=== PATIENT | male | born 1975 | race Caucasian/White ===

== ENCOUNTER 2020-01-03 13:10 | Outpatient (CLI) | payer OTHER | END 2020-01-03 13:11 | disposition home or self-care (01) | LOC: DI 13:10 | PROVIDERS: ATTEND Internal Medicine Critical Care Medicine | DX: R06.09 Other forms of dyspnea (principal); I34.0 Nonrheumatic mitral (valve) insufficiency; I11.9 Hypertensive heart disease without heart failure | CPT/HCPCS: 93306 ==

== ENCOUNTER 2023-06-02 07:01 | Emergency (ER) | payer MEDICAID, OTHER ==
[2023-06-02] MEDS ORDERED: KETOROLAC 30 MG/ML VIAL IVP STA (07:32)
[2023-06-02] MEDS ORDERED: SODIUM CHLORIDE 0.9% 1,000 ML IV STA (07:32)
--- NOTE | 2023-06-02 07:36 | ED Physician Documentation ---
History of Present Illness - Stated complaint Stated Complaint: FEVER,NAUSEA,BACK PX - Chief complaint Chief Complaint: General - History obtained from History obtained from: Patient - Additonal information Additional information: Patient is a 47-year-old male with a prior history of atrial fibrillation with ablation presenting for evaluation of fever for the past 40 days with body aches, intermittent pains in the left groin, dull aches in the low back. Patient has been using acetaminophen with improvement in his fever but the fever Will spike back up. He last used acetaminophen this morning at 5:30 in the morning. He denies cough or congestion. No vomiting or diarrhea. He denies dysuria but has noted that his urine appears darker. No blood in the urine. He has been traveling around the [facility] with camping and fishing. No known sick contacts. He has taken a COVID swab which has been negative twice. Review of Systems Constitutional: reports: Fever Cardiac: denies: Chest pain / pressure Respiratory: denies: Dyspnea GI: denies: Abdominal Pain, Vomiting : denies: Dysuria Musculoskeletal: denies: Extremity swelling PD PAST MEDICAL HISTORY - Present Medications Home Medications: Ambulatory Orders Medication Instructions Recorded Confirmed No Known Home Medications 06/02/23 06/02/23 - Allergies Allergies/Adverse Reactions: Allergies Allergy/AdvReac Type Severity Reaction Status Date / Time No Known Drug Allergies Allergy Verified 06/02/23 07:19 PD ED PE NORMAL - General General: Alert and oriented X 3, No acute distress, Well developed/nourished - HEENT HEENT: Atraumatic, Moist mucous membranes, Pharynx benign - Neck Neck: Supple, no meningeal sign, No bony TTP - Cardiac Cardiac: RRR, No murmur - Respiratory Respiratory: No respiratory distress, Clear bilaterally - Abdomen Abdomen: Normal bowel sounds, Soft, Non tender, Non distended - Male Male : Area Safety Manager present (Hannah; no inguinal tenderness on exam; no visible or palpable masses or swelling; no erythema) - Derm Derm: Warm and dry - Extremities Extremities: No edema - Neuro Neuro: Alert and oriented X 3, No motor deficit, Normal speech Results - Vitals Vitals: Vital Signs - 24 hr 06/02/23 06/02/23 06/02/23 07:11 07:43 09:29 Temperature 37.6 C Heart Rate 99 82 72 Respiratory 16 20 15 Rate Blood Pressure 144/86 H 136/90 H 111/61 O2 Saturation 97 100 98 Oxygen O2 Source Room air - Labs Labs: Laboratory Tests 06/02/23 06/02/23 06/02/23 07:37 07:37 07:37 WBC 6.1 RBC 4.90 Hgb 15.4 Hct 44.4 MCV 90.6 MCH 31.4 H MCHC 34.7 RDW 13.3 Plt Count 144 MPV 8.9 Neut # (Auto) 4.8 Lymph # (Auto) 0.6 L [place] # (Auto) 0.7 Eos # (Auto) 0.0 Baso # (Auto) 0.0 Absolute Nucleated RBC 0.00 Nucleated RBC % 0.0 Sodium 133 L Potassium 3.8 Chloride 101 Carbon Dioxide 24 Anion Gap 8.0 BUN 13 Creatinine 1.1 Estimated GFR (MDRD) 72 L Glucose 120 H Lactic Acid 0.8 Calcium 9.3 Total Bilirubin 0.6 AST 89 H ALT 119 H Alkaline Phosphatase 141 H Total Protein 7.1 Albumin 4.4 Globulin 2.7 Albumin/Globulin Ratio 1.6 Lipase 10 L Urine Color Urine Clarity Urine pH Ur Specific [place] Urine Protein Urine Glucose (UA) Urine Ketones Urine Occult Blood Urine Nitrite Urine Bilirubin Urine Urobilinogen Ur Leukocyte Esterase Urine RBC Urine WBC Ur Squamous Epith Cells Urine Bacteria Urine Mucus Ur Microscopic Review Urine Culture Comments Nasal Adenovirus (PCR) Nasal B. parapertussis DNA (PCR) Nasal Coronavir 229E PCR Nasal Coronavir HKU1 PCR Nasal Coronavir NL63 PCR Nasal Coronavir OC43 PCR Nasal Enterovir/Rhinovir PCR Nasal Influenza B PCR Nasal Influenza A PCR Nasal Parainfluen 1 PCR Nasal Parainfluen 2 PCR Nasal Parainfluen 3 PCR Nasal Parainfluen 4 PCR Nasal RSV (PCR) Nasal B.pertussis DNA PCR Nasal C.pneumoniae (PCR) Stas Human Metapneumo PCR Nasal M.pneumoniae (PCR) Nasal SARS-CoV-2 (PCR) 06/02/23 06/02/23 07:40 07:40 WBC RBC Hgb Hct MCV MCH MCHC RDW Plt Count MPV Neut # (Auto) Lymph # (Auto) [place] # (Auto) Eos # (Auto) Baso # (Auto) Absolute Nucleated RBC Nucleated RBC % Sodium Potassium Chloride Carbon Dioxide Anion Gap BUN Creatinine Estimated GFR (MDRD) Glucose Lactic Acid Calcium Total Bilirubin AST ALT Alkaline Phosphatase Total Protein Albumin Globulin Albumin/Globulin Ratio Lipase Urine Color DARK YELLOW Urine Clarity CLEAR Urine pH 6.5 Ur Specific [place] 1.020 Urine Protein 30 H Urine Glucose (UA) NEGATIVE Urine Ketones 40 H Urine Occult Blood NEGATIVE Urine Nitrite NEGATIVE Urine Bilirubin NEGATIVE Urine Urobilinogen 1 (NORMAL) Ur Leukocyte Esterase NEGATIVE Urine RBC 0-5 Urine WBC 0-3 Ur Squamous Epith Cells NONE SEEN Urine Bacteria Rare Urine Mucus Few Strands Ur Microscopic Review INDICATED Urine Culture Comments NOT INDICATED Nasal Adenovirus (PCR) NOT DETECTED Nasal B. parapertussis DNA (PCR) NOT DETECTED Nasal Coronavir 229E PCR NOT DETECTED Nasal Coronavir HKU1 PCR NOT DETECTED Nasal Coronavir NL63 PCR NOT DETECTED Nasal Coronavir OC43 PCR NOT DETECTED Nasal Enterovir/Rhinovir PCR NOT DETECTED Nasal Influenza B PCR NOT DETECTED Nasal Influenza A PCR NOT DETECTED Nasal Parainfluen 1 PCR NOT DETECTED Nasal Parainfluen 2 PCR NOT DETECTED Nasal Parainfluen 3 PCR NOT DETECTED Nasal Parainfluen 4 PCR NOT DETECTED Nasal RSV (PCR) NOT DETECTED Nasal B.pertussis DNA PCR NOT DETECTED Nasal C.pneumoniae (PCR) NOT DETECTED Stas Human Metapneumo PCR NOT DETECTED Nasal M.pneumoniae (PCR) NOT DETECTED Nasal SARS-CoV-2 (PCR) NOT DETECTED PD Medical Decision Making - ED course Complexity details: reviewed results, re-evaluated patient, d/w patient ED course: Patient is a 47-year-old male presenting for evaluation of fever for the past 4 days with generalized body aches. He has been using acetaminophen. He is afebrile here but did have acetaminophen earlier today. Otherwise vital signs appear stable. Abdominal exam is benign. He is ambulatory,. No signs of meningitis. Labs obtained without significant findings other than mild elevation in LFTs. Abdominal exam repeated with no tenderness again noted. His urine analysis is negative for infection. Chest x-ray is clear. Respiratory swab is negative. As his white count is normal and lack of other symptoms I still suspect a viral etiology. LFTs may be elevated due to a viral hepatitis. I offered abdominal imaging which patient declines at this time as he is feeling better. Discussed continued supportive care. Blood cultures are pending. Aware of need for follow-up with primary care provider regarding elevated LFTs. Patient also counseled on concerning symptoms to return for. Departure - Departure Disposition: 01 Home, Self Care Clinical Impression: Fever, unknown origin, Abnormal liver enzymes Condition: Stable Instructions: ED Fever Unconf Cause Follow-Up: Iris Singh, GRACIELA [Physician No Access] - Within 3 Days (Please follow-up with your primary care provider at [facility]) Comments: You were evaluated for a fever. The exact cause for your fever at this time is unclear. Your chest x-ray does not show pneumonia. Your urine does not show an infection. Your respiratory swab is negative for the viruses that we are testing for including COVID. You do have slight elevation of some of your liver markers. Sometimes this can happen with a viral infection or hepatitis. Currently you are not having any abdominal symptoms including tenderness. I would recommend close follow-up with your primary care provider for recheck and possible imaging of your liver. If you develop any worsening symptoms such as pain, vomiting, diarrhea or have any new concerns or symptoms please return to the emergency department. We have also obtained blood cultures today. These will take a few days to result. If anything is abnormal we will notify you. Continue with fluids, rest and fever control with ibuprofen. Forms: PCP List Discharge Date/Time: 06/02/23 09:35
[2023-06-02 07:44] LABS: BASOPHILS % (AUTO) 0.5 %; HCT - HEMATOCRIT 44.4 % (42.0-52.0); HGB - HEMOGLOBIN 15.4 g/dL (14.0-18.0); LYMPHOCYTES # (AUTO) 0.6 10^3/uL (1.5-3.5); MEAN CORPUSCULAR HEMOGLOBIN 31.4 pg (27.0-31.0); MEAN CORPUSCULAR HGB CONC 34.7 g/dL (32.0-36.0); MEAN CORPUSCULAR VOLUME 90.6 fL (80.0-94.0); MEAN PLATELET VOLUME 8.9 fL (7.4-11.4); MONOCYTES # (AUTO) 0.7 10^3/uL (0.0-1.0); MONOCYTES % (AUTO) 11.6 %; NEUTROPHILS # (AUTO) 4.8 10^3/uL (1.5-6.6); NEUTROPHILS % (AUTO) 78.7 %; PLT - PLATELET COUNT 144 10^3/uL (130-450); RED CELL DISTRIBUTION WIDTH 13.3 % (12.0-15.0); WHITE BLOOD COUNT 6.1 x10^3/uL (4.8-10.8)
[2023-06-02 07:49] LABS: GLUCOSE, URINE (UA) NEGATIVE (NEGATIVE); KETONES,URINE (UA) 40 mg/dL (NEGATIVE); LEUKOCYTE ESTERASE, URINE NEGATIVE (NEGATIVE); NITRITE,URINE NEGATIVE (NEGATIVE); OCCULT BLOOD,URINE NEGATIVE (NEGATIVE); PH,URINE 6.5 PH (5.0-7.5); PROTEIN,URINE 30 mg/dL (NEGATIVE); UROBILINOGEN,URINE 1 (NORMAL) E.U./dL (NORMAL)
[2023-06-02 07:51] LABS: BILIRUBIN,URINE NEGATIVE (NEGATIVE); CLARITY,URINE CLEAR (CLEAR); ICTOTEST,URINE NEGATIVE
[2023-06-02 08:03] LABS: ALBUMIN 4.4 g/dL (3.2-5.5); ALBUMIN/GLOBULIN RATIO 1.6 (1.0-2.2); BILIRUBIN,TOTAL 0.6 mg/dL (0.2-1.0); CALCIUM 9.3 mg/dL (8.5-10.3); CREATININE 1.1 mg/dL (0.6-1.3); POTASSIUM 3.8 mmol/L (3.5-4.5); TOTAL PROTEIN 7.1 g/dL (6.4-8.9)
[2023-06-02 08:07] LABS: BACTERIA,URINE Rare /HPF (None Seen); MUCUS,URINE Few Strands; RBC,URINE 0-5 /HPF (0-5); SQUAMOUS EPITHELIAL CELL,UR NONE SEEN (<= Few); WBC,URINE 0-3 /HPF (0-3)
[2023-06-02 08:42] LABS: B. PARAPERTUSSIS- RESP PCR PAN NOT DETECTED; B. PERTUSSIS- RESP PCR PANEL NOT DETECTED; C. PNEUMONIAE- RESP PCR PANEL NOT DETECTED; CORONAVIRUS 229E-RESP PCR NOT DETECTED; CORONAVIRUS HKU1-RESP PCR NOT DETECTED; CORONAVIRUS NL63-RESP PCR NOT DETECTED; CORONAVIRUS OC43-RESP PCR NOT DETECTED; HUMAN METAPNEUMOVIRUS NOT DETECTED; INFLUENZA A- RESP PCR PANEL NOT DETECTED; INFLUENZA B - RESP PCR PANEL NOT DETECTED; M. PNEUMONIAE- RESP PCR PANEL NOT DETECTED; PARAINFLUENZA VIRUS 1 NOT DETECTED; PARAINFLUENZA VIRUS 2 NOT DETECTED; PARAINFLUENZA VIRUS 3 NOT DETECTED; PARAINFLUENZA VIRUS 4 NOT DETECTED; RHINOVIRUS/ENTEROVIRUS NOT DETECTED; RSV- RESP PCR PANEL NOT DETECTED; SARS-CoV-2 -RESP PCR PANEL NOT DETECTED
--- NOTE | 2023-06-02 08:47 | XRAY Report ---
PROCEDURE: Chest 1 View X-Ray INDICATIONS: fever x 4 days TECHNIQUE: One view of the chest was acquired. COMPARISON: None. FINDINGS: Surgical changes and devices: None. Lungs and pleura: No pleural effusions or pneumothorax. Lungs are clear. Mediastinum: Mediastinal contours appear normal. Heart size is normal. Bones and chest wall: No suspicious bony lesions. Overlying soft tissues appear unremarkable. IMPRESSION: No acute cardiopulmonary process. Reviewed by: Armida Argueta MD on 06/02/2023 8:46 AM PDT Approved by: Armida Argueta MD on 06/02/2023 8:46 AM PDT Station ID: [id number]
[2023-06-02 09:31] VITALS: BP 111/61; O2SAT 98
== END 2023-06-02 09:35 | disposition home or self-care (01) ==
LOC: ED 07:01
DX: R50.9 Fever, unspecified (principal); R74.01 Elevation of levels of liver transaminase levels; Z20.822 Contact with and (suspected) exposure to COVID-19
CPT/HCPCS: 36415; 80053; 81001; 81003; 83605; 83690; 85025; 87040; 87086; 87150; 87633; 96374; 99283

== ENCOUNTER 2023-06-03 10:13 | Inpatient (IN) | payer MEDICAID ==
--- NOTE | 2023-06-03 11:06 | ED Physician Documentation ---
PD HPI FEVER - Stated complaint Stated Complaint: FEVER,BACK/GROIN PAIN,GI - Chief complaint Chief Complaint: Fever - History obtained from History obtained from: Patient, Family - History of Present Illness Timing - onset: How many days ago (2-5) Timing duration: Days Timing details: Gradual onset, Still present, Waxing and waning Associated symptoms: Chills, Sweats, Dry cough, Rash/skin lesion (fingers with scrapes from barnacles splits to the heals chronic fissures) Contributing factors: Travel Similar symptoms before: Has not had sx before Recently seen: Emergency Dept - Additional information Additional information: 47-year-old male with a prior history of atrial fibrillation s/p ablation has presented to the emergency department for the second time in 2 days with fever. He has had fever and chills for 5 days now. He had a benign appearing work-up yesterday and was diagnosed with viral syndrome. Today his symptoms are persistent and he has returned to the emergency department. He did have a blood culture positive for Staph epidermidis. We considered this a contaminant and did not call the patient. He returned with worsening symptoms. Review of Systems Constitutional: reports: Fever, Chills, Myalgias, Fatigue, Sweats Eyes: denies: Decreased vision Ears: denies: Ear pain Nose: reports: Congestion Throat: denies: Sore throat Cardiac: denies: Chest pain / pressure, Palpitations Respiratory: reports: Cough. denies: Dyspnea GI: denies: Abdominal Pain, Abdominal Swelling, Nausea, Vomiting, Constipation, Diarrhea : denies: Dysuria, Frequency Skin: reports: Abrasion (s) (to the fingertips from scraping barncles and to the heals with chronic fissures). denies: Rash Neurologic: reports: Generalized weakness, Other (has prior CO exposure with resultant processing difficulty). denies: Focal weakness, Numbness, Difficulty speaking, Altered mental status, Headache, Head injury, LOC PD PAST MEDICAL HISTORY - Present Medications Home Medications: Ambulatory Orders Medication Instructions Recorded Confirmed No Known Home Medications 06/02/23 06/02/23 - Allergies Allergies/Adverse Reactions: Allergies Allergy/AdvReac Type Severity Reaction Status Date / Time No Known Drug Allergies Allergy Verified 06/03/23 10:45 PD ED PE NORMAL - Vitals Vital signs reviewed: Yes (hypertenisve and febrile ) - General General: Alert and oriented X 3, No acute distress, Well developed/nourished - HEENT HEENT: Atraumatic, PERRL, EOMI, Ears normal, Moist mucous membranes, Pharynx benign, Dentition benign - Neck Neck: Supple, no meningeal sign, No bony TTP, No adenopathy, Other (no nuchal rigidity paraspinous muscle tenderness. ) - Cardiac Cardiac: RRR, No murmur - Respiratory Respiratory: No respiratory distress, Clear bilaterally - Abdomen Abdomen: Normal bowel sounds, Soft, Non tender, Non distended, No organomegaly - Rectal Rectal: Other (Prostate is smooth nonnodular nontender and nonboggy. Rectal tone is normal) - Back Back: No CVA TTP, No spinal TTP - Derm Derm: Warm and dry, No rash, Other (The fingers appear pale. There are several small deep abrasions to the tips consistent with the history of laceration on barnacles. fissures to the heals. both without signs of inflamation. ) - Extremities Extremities: No deformity, No edema, Other (as above) - Neuro Neuro: Alert and oriented X 3, clinical appeals auditor 2-12 intact, No motor deficit, No sensory deficit, Normal speech Eye Opening: Spontaneous Motor: Obeys Commands Verbal: Oriented GCS Score: 15 - Psych Psych: Normal mood, Normal affect Results - Vitals Vitals: Vital Signs - 24 hr 06/03/23 06/03/23 06/03/23 10:40 11:14 11:15 Temperature 38.0 C H 102.5 C H Heart Rate 96 85 89 Respiratory 20 18 22 Rate Blood Pressure 141/86 H 139/88 H 139/88 H O2 Saturation 100 99 99 06/03/23 06/03/23 06/03/23 12:10 12:20 13:07 Temperature 101.4 C H Heart Rate 84 85 85 Respiratory 19 20 20 Rate Blood Pressure 130/77 128/76 101/60 O2 Saturation 98 100 97 06/03/23 06/03/23 06/03/23 13:30 14:00 14:51 Temperature 100.3 C H Heart Rate 81 87 60 Respiratory 20 22 12 Rate Blood Pressure 105/76 102/63 121/47 L O2 Saturation 98 100 97 06/03/23 15:36 Temperature 36.6 C Heart Rate 71 Respiratory 17 Rate Blood Pressure 122/72 O2 Saturation 97 Oxygen O2 Source Room air - Labs Labs: Laboratory Tests 06/03/23 06/03/23 06/03/23 11:20 11:30 11:30 WBC 7.2 RBC 4.77 Hgb 14.7 Hct 43.6 MCV 91.4 MCH 30.8 MCHC 33.7 RDW 13.2 Plt Count 162 MPV 9.0 Neut # (Auto) 5.2 Lymph # (Auto) 1.0 L [place] # (Auto) 0.9 Eos # (Auto) 0.0 Baso # (Auto) 0.0 Absolute Nucleated RBC 0.00 Band Neuts % (Manual) Not Reportable Abnorm Lymph % (Manual) Not Reportable Nucleated RBC % 0.0 Neutrophils # (Manual) Not Reportable Lymphocytes # (Manual) Not Reportable Monocytes # (Manual) Not Reportable Eosinophils # (Manual) Not Reportable Basophils # (Manual) Not Reportable Differential Comment MANUAL=AUTO DIFF Manual Slide Review Indicated WBC Morphology NORMAL APPEARANCE Platelet Estimate NORMAL (130-450,000) Platelet Morphology NORMAL APPEARANCE RBC Morph Micro Appear NORMAL APPEARANCE Sodium 131 L Potassium 3.7 Chloride 97 L Carbon Dioxide 26 Anion Gap 8.0 BUN 16 Creatinine 1.3 Estimated GFR (MDRD) 60 L Glucose 116 H Calcium 8.9 Total Bilirubin 0.5 AST 43 H ALT 94 H Alkaline Phosphatase 133 H Total Protein 6.8 Albumin 4.1 Globulin 2.7 Albumin/Globulin Ratio 1.5 Lipase 10 L Urine Color Urine Clarity Urine pH Ur Specific [place] Urine Protein Urine Glucose (UA) Urine Ketones Urine Occult Blood Urine Nitrite Urine Bilirubin Urine Urobilinogen Ur Leukocyte Esterase Urine RBC Urine WBC Ur Squamous Epith Cells Urine Bacteria Urine Casts Urine Mucus Ur Microscopic Review Urine Culture Comments Nasal Adenovirus (PCR) NOT DETECTED Nasal B. parapertussis DNA (PCR) NOT DETECTED Nasal Coronavir 229E PCR NOT DETECTED Nasal Coronavir HKU1 PCR NOT DETECTED Nasal Coronavir NL63 PCR NOT DETECTED Nasal Coronavir OC43 PCR NOT DETECTED Nasal Enterovir/Rhinovir PCR NOT DETECTED Nasal Influenza B PCR NOT DETECTED Nasal Influenza A PCR NOT DETECTED Nasal Parainfluen 1 PCR NOT DETECTED Nasal Parainfluen 2 PCR NOT DETECTED Nasal Parainfluen 3 PCR NOT DETECTED Nasal Parainfluen 4 PCR NOT DETECTED Nasal RSV (PCR) NOT DETECTED Nasal B.pertussis DNA PCR NOT DETECTED Nasal C.pneumoniae (PCR) NOT DETECTED Stas Human Metapneumo PCR NOT DETECTED Nasal M.pneumoniae (PCR) NOT DETECTED Nasal SARS-CoV-2 (PCR) NOT DETECTED 06/03/23 11:53 WBC RBC Hgb Hct MCV MCH MCHC RDW Plt Count MPV Neut # (Auto) Lymph # (Auto) [place] # (Auto) Eos # (Auto) Baso # (Auto) Absolute Nucleated RBC Band Neuts % (Manual) Abnorm Lymph % (Manual) Nucleated RBC % Neutrophils # (Manual) Lymphocytes # (Manual) Monocytes # (Manual) Eosinophils # (Manual) Basophils # (Manual) Differential Comment Manual Slide Review WBC Morphology Platelet Estimate Platelet Morphology RBC Morph Micro Appear Sodium Potassium Chloride Carbon Dioxide Anion Gap BUN Creatinine Estimated GFR (MDRD) Glucose Calcium Total Bilirubin AST ALT Alkaline Phosphatase Total Protein Albumin Globulin Albumin/Globulin Ratio Lipase Urine Color DARK YELLOW Urine Clarity CLEAR Urine pH 6.0 Ur Specific [place] 1.020 Urine Protein 100 H Urine Glucose (UA) NEGATIVE Urine Ketones NEGATIVE Urine Occult Blood TRACE-INTA Urine Nitrite NEGATIVE Urine Bilirubin NEGATIVE Urine Urobilinogen 0.2 (NORMAL) Ur Leukocyte Esterase NEGATIVE Urine RBC None Seen Urine WBC 0-3 Ur Squamous Epith Cells NONE SEEN Urine Bacteria Few Urine Casts 0-2 Course Granular Urine Mucus Few Strands Ur Microscopic Review INDICATED Urine Culture Comments NOT INDICATED Nasal Adenovirus (PCR) Nasal B. parapertussis DNA (PCR) Nasal Coronavir 229E PCR Nasal Coronavir HKU1 PCR Nasal Coronavir NL63 PCR Nasal Coronavir OC43 PCR Nasal Enterovir/Rhinovir PCR Nasal Influenza B PCR Nasal Influenza A PCR Nasal Parainfluen 1 PCR Nasal Parainfluen 2 PCR Nasal Parainfluen 3 PCR Nasal Parainfluen 4 PCR Nasal RSV (PCR) Nasal B.pertussis DNA PCR Nasal C.pneumoniae (PCR) Stas Human Metapneumo PCR Nasal M.pneumoniae (PCR) Nasal SARS-CoV-2 (PCR) - Rads (name of study) chest Relevant Findings:: Prelim report reviewed (Impression: No acute cardiopulmonary process.), EMP independent interpretation of test Procedures - Lumbar Puncture - Major Position: Laying left side Location: L2-L3, Midline approach Anesthesia: Local lidocaine CSF: Clear Other: Sterile prep and drape, Patient tolerated well, No complications PD Medical Decision Making - ED course Complexity details: reviewed old records, reviewed results, re-evaluated patient, considered differential, d/w patient, d/w family Reviewed Lab Results: We reviewed a complete blood count showing a normal white blood cell count norm al hemoglobin hematocrit and platelets. Chemistries were remarkable for elevation in the AST ALT and alkaline phosphatase all of these values are slightly improved from yesterday's values. They are mildly elevated. Serum sodium was low at 131 urinalysis is remarkable only for some trace protein and nasal PCR is negative. A blood culture done yesterday grew Staph epidermidis from 1 bottle. Sensitivities are pending. My interpretation of these results are a benign process. However despite Staph epidermidis growing out of a single bottle the patient has progressed in his symptoms and staph epidermis this bacteremia is suspected. The site of inoculation suspected to be either from the fingers or heels. The patient's elevation in AST ALT and alkaline phosphatase may be related to the patient's intake of beer over his recent holiday. Patient indicates his usual drinking pattern is 2-3 vodka sodas per night and he does not usually drink beer. He has had issues drinking beer previously with prostatitis. ED course: 47-year-old Jerry Klein presents to the emergency department today with persistent fever chills and myalgias. He has recently been on vacation at [facility] and he reports beginning to have chills and sweats 5 days ago. He was seen in the emergency department yesterday without specific findings and a blood culture came out positive for Staph epidermidis. We considered this a contaminant and did not call the patient. The patient return to the emergency department with worsening of symptoms. He continued to be febrile in the emergency department. He continues to have a normal white blood cell count. We evaluated the patient for signs of skin interruption and found areas on his left hand finger and thumb as well as chronic fissures to his heels. The patient indicates that he has been in dirty water fishing.Today he is started on vancomycin and admitted into the hospital after second blood cultures were obtained. This patient's febrile illness still may be a viral infection but given the positive blood cultures and persistent fever a course of treatment is indicated. Jerry is complaining of a headache and neck pain. The hospitalist was requested lumbar puncture the patient was consented sterilely draped anesthetized and with a single puncture clear fluid was returned.Patient has some complaints of groin and lower abdominal pain as well as pain in the left flank. A CT scan of the abdomen pelvis with contrast is ordered and at the time of admission is pending Departure - Departure Disposition: ED Place in Observation Clinical Impression: Staphylococcus epidermidis bacteremia Condition: Stable
[2023-06-03] MEDS ORDERED: VANCOMYCIN INJ 2 GM in SODIUM CHLORIDE 0.9% 500 ML IV STA (11:09)
--- NOTE | 2023-06-03 11:42 | XRAY Report ---
PROCEDURE: Chest 1 View X-Ray INDICATIONS: chest pain TECHNIQUE: One view of the chest was acquired. COMPARISON: 06/02/2023. FINDINGS: Surgical changes and devices: None. Lungs and pleura: No pleural effusions or pneumothorax. Lungs are clear. Mediastinum: Mediastinal contours appear normal. Heart size is normal. Bones and chest wall: No suspicious bony lesions. Overlying soft tissues appear unremarkable. IMPRESSION: No acute cardiopulmonary process. Reviewed by: Spencer Sheets MD on 06/03/2023 11:40 AM PDT Approved by: Spencer Sheets MD on 06/03/2023 11:40 AM PDT Station ID: [id number]
[2023-06-03 11:43] LABS: BASOPHILS % (AUTO) 0.3 %; HCT - HEMATOCRIT 43.6 % (42.0-52.0); HGB - HEMOGLOBIN 14.7 g/dL (14.0-18.0); LYMPHOCYTES % (AUTO) 14.4 %; MEAN CORPUSCULAR HEMOGLOBIN 30.8 pg (27.0-31.0); MEAN CORPUSCULAR HGB CONC 33.7 g/dL (32.0-36.0); MEAN CORPUSCULAR VOLUME 91.4 fL (80.0-94.0); MONOCYTES # (AUTO) 0.9 10^3/uL (0.0-1.0); MONOCYTES % (AUTO) 12.2 %; NEUTROPHILS # (AUTO) 5.2 10^3/uL (1.5-6.6); PLT - PLATELET COUNT 162 10^3/uL (130-450); RED BLOOD COUNT 4.77 10^6/uL (4.70-6.10); RED CELL DISTRIBUTION WIDTH 13.2 % (12.0-15.0); WHITE BLOOD COUNT 7.2 x10^3/uL (4.8-10.8)
[2023-06-03 11:49] LABS: SLIDE REVIEW? Indicated
[2023-06-03 11:57] LABS: BILIRUBIN,URINE NEGATIVE (NEGATIVE); CLARITY,URINE CLEAR (CLEAR); GLUCOSE, URINE (UA) NEGATIVE (NEGATIVE); KETONES,URINE (UA) NEGATIVE (NEGATIVE); LEUKOCYTE ESTERASE, URINE NEGATIVE (NEGATIVE); NITRITE,URINE NEGATIVE (NEGATIVE); OCCULT BLOOD,URINE TRACE-INTA (NEGATIVE); PROTEIN,URINE 100 mg/dL (NEGATIVE); UROBILINOGEN,URINE 0.2 (NORMAL) E.U./dL (NORMAL)
[2023-06-03 12:06] LABS: ALBUMIN 4.1 g/dL (3.2-5.5); ALBUMIN/GLOBULIN RATIO 1.5 (1.0-2.2); BILIRUBIN,TOTAL 0.5 mg/dL (0.2-1.0); CALCIUM 8.9 mg/dL (8.5-10.3); CREATININE 1.3 mg/dL (0.6-1.3); POTASSIUM 3.7 mmol/L (3.5-4.5); TOTAL PROTEIN 6.8 g/dL (6.4-8.9)
[2023-06-03 12:09] LABS: BACTERIA,URINE Few /HPF (None Seen); RBC,URINE None Seen /HPF (0-5); SQUAMOUS EPITHELIAL CELL,UR NONE SEEN (<= Few); WBC,URINE 0-3 /HPF (0-3)
[2023-06-03 12:10] LABS: MUCUS,URINE Few Strands
[2023-06-03 12:18] LABS: DIFFERENTIAL COMMENT MANUAL=AUTO DIFF; PLATELET ESTIMATE, MANUAL NORMAL (130-450,000) (NORMAL); PLATELET MORPHOLOGY NORMAL APPEARANCE (NORMAL); RBC MORPHOLOGY (MULTIPLE) NORMAL APPEARANCE (NORMAL); WBC MORPHOLOGY (MULTIPLE) NORMAL APPEARANCE (NORMAL)
[2023-06-03] MEDS ORDERED: ACETAMINOPHEN 325 MG TABLET PO STA (12:23)
[2023-06-03 12:35] LABS: B. PARAPERTUSSIS- RESP PCR PAN NOT DETECTED; B. PERTUSSIS- RESP PCR PANEL NOT DETECTED; C. PNEUMONIAE- RESP PCR PANEL NOT DETECTED; CORONAVIRUS 229E-RESP PCR NOT DETECTED; CORONAVIRUS HKU1-RESP PCR NOT DETECTED; CORONAVIRUS NL63-RESP PCR NOT DETECTED; CORONAVIRUS OC43-RESP PCR NOT DETECTED; HUMAN METAPNEUMOVIRUS NOT DETECTED; INFLUENZA A- RESP PCR PANEL NOT DETECTED; INFLUENZA B - RESP PCR PANEL NOT DETECTED; M. PNEUMONIAE- RESP PCR PANEL NOT DETECTED; PARAINFLUENZA VIRUS 1 NOT DETECTED; PARAINFLUENZA VIRUS 2 NOT DETECTED; PARAINFLUENZA VIRUS 3 NOT DETECTED; PARAINFLUENZA VIRUS 4 NOT DETECTED; RHINOVIRUS/ENTEROVIRUS NOT DETECTED; RSV- RESP PCR PANEL NOT DETECTED; SARS-CoV-2 -RESP PCR PANEL NOT DETECTED
[2023-06-03] MEDS ORDERED: KETOROLAC 30 MG/ML VIAL IVP STA (13:47)
[2023-06-03] MEDS ORDERED: HYDROcod/ACETAM 5/325 MG TABLET PO STA (14:51)
[2023-06-03] MEDS ORDERED: SODIUM CHLORIDE FLUSH 0.9% 10 ML SYRINGE IVP PRN (15:30)
[2023-06-03] MEDS ORDERED: ONDANSETRON 4 MG/2 ML VIAL IVP PRN (15:40)
[2023-06-03] MEDS ORDERED: ONDANSETRON ODT 4 MG TABLET TL PRN (15:40)
--- NOTE | 2023-06-03 16:06 | HISTORY & PHYSICAL EXAMINATION ---
Chief Complaint - Chief Complaint Chief Complaint: weakness, headache and fever History of Present Illness - Admitted From Admitted From:: home - History Obtained From Records Reviewed: [facility] History obtained from: patient, and Dr Joseph Exam Limitations: cognitive delay from CO poisoning in past - History of Present Illness HPI Comment/Other: He is a 47-year-old male whose main medical problem in the past has been carbon monoxide poisoning causing cognitive deficits, and A-fib with RVR resulting in ablation over a year ago. But he regards himself is otherwise healthy and is physically able to do anything he wants to do. He does not use any durable medical equipment, still drives a car, fixes his boat, etc. He had been gone for 2 weeks. Had been traveling in the [facility] going from [place] to [employer] fishing. Had a great time. While still on the boat on May 27, he developed headache, fever, malaise. It was mild at first. But he continued on a daily basis until he came home on the . The headache is associated with photophobia. Poor appetite. And the fever has resulted in feeling diffuse myalgias, arthralgias, with severe weakness. It is hard for him to get out of bed. He has been drinking plenty of fluids. But minimal urine output. Since the he has also developed bilateral groin pain that is quite uncomfortable. He has had prostatitis a few times in the past. But that is usually associated with perineal and rectal pain. He has not had that. He has bilateral flank pain. He feels like the flank pain starts at his lower T-spine and then radiates around forward. But it is mild in comparison to what the headache is or what his groin feels like. He describes the groin pain as "weird". He denies testicular pain. He denies sore throat, ear pain, sinus pain. He has minimal cough. Denies urgency, frequency. No dysuria. No hematuria. No brown urine. He denies any bowel pain. No diarrhea. No rectal or perineal pain. Lower abdomen aches over the groin pain but no true abdominal pain. He came to the emergency room on June 02 when his fever was not going away and was as high as 102. He tried Tylenol. No one else is sick in the family. He is done multiple COVID swabs at home and they have all been negative. In the emergency room temperature was 37.6. Blood pressure was normal. Heart rate was 99. His exam was negative for heart lung and abdomen. No meningismus. No inguinal tenderness, no visible or palpable masses. His white cell count was normal. Blood cultures were obtained. He was sent home. He returns today with continued fever. He tells me that the fever is the worst headache he has ever had. It is associated with photophobia. No nausea or vomiting. No nuchal rigidity. When he was being reevaluated today, his blood cultures from the came back positive as Staph epidermidis. Blood cultures were drawn on June 02 at 7:41 AM. They came back positive on June 03 at 5:55 AM. Just under 24 hours. In discussing possible sources of infection that would be from skin, he has had no IVs, central lines. He does have chronic skin breakdown of his heels that is not new. 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 But there is no skin breakdown other than the heels. No redness, swelling, drainage of any skin area. Objectively repeat labs showed a normal white cell count. Tmax was 102.5 this morning. Chest x-ray is normal. But pulse and blood pressure are normal. Dr. Joseph, from the emergency room, asked if I could see this patient. Other than the chest x-ray he has not had any other radiologic imaging. Once I did a review of systems and spoke to the patient about his headache, photophobia, I rediscussed the case with Dr. Joseph and I asked that Dr. Joseph please do a lumbar puncture. Dr. Joseph will do so, but I am also going to be admitting this patient to inpatient status because of fever without source and positive blood cultures that need evaluation. History - Past Medical History Cardiovascular: reports: Atrial fibrillation (With ablation over a year ago. Since then he has been in sinus rhythm) Respiratory: reports: None Neuro: reports: Head injury (Due to carbon monoxide poisoning on the job. This was a few years ago. Is left him with memory issues. Difficult to process lots of information at the same time) Endocrine/Autoimmune: reports: None GI: reports: None : reports: Other (Prostatitis several times) HEENT: reports: None Psych: reports: None Musculoskeletal: reports: None Derm: reports: Other (Chronic heel cracking for years) - Past Surgical History Cardiovascular: reports: Cardiac catheterization - Family & Social History Family History Comment/Other: Not in contact with his father. Mom is in her early 60s with no major medical issues of hypertension, diabetes, cancer, heart attack, stroke. 2 siblings that are completely healthy. 2 children that are completely healthy except 1 has gluten intolerance Living arrangement: At home Living Situation: With spouse/s.o. Social History Notes: He smoked 2 to 3 years up until 11 years ago. Smoking was erratic and he completed a pack may be every 2 weeks. He drinks anywhere from no drinks to 6 drinks a week. Never had a history with alcohol abuse. He works [employer] for [employer]. No history of recreational substance use. No cocaine, heroin, LSD, speed, or cannabis. to his first . They live in their own home. - Substance History Use: Uses substance without health or social issues: NONE Abuse: Recurrent use of substance despite neg consequences: NONE Dependence: Experiences withdrawal or developed tolerances: NONE - POLST Patient has POLST: No POLST Status: Full Code Meds/Allgy - Home Medications Home Medications: Ambulatory Orders Medication Instructions Recorded Confirmed No Known Home Medications 06/02/23 06/02/23 - Allergies Allergies/Adverse Reactions: Allergies Allergy/AdvReac Type Severity Reaction Status Date / Time No Known Drug Allergies Allergy Verified 06/03/23 10:45 Review of Systems - Constitutional Constitutional: reports: Fatigue, Fever, Malaise, Weakness, Poor appetite - Eyes Eyes: reports: Other (Photophobia). denies: Pain, Irritation, Amaurosis, Blurred vision - Ears, Nose & Throat Ears, Nose & Throat: denies: Ear pain, Hearing loss, Hearing aids, Tinnitus, Vertigo, Nasal pain, Nasal discharge, Sore throat, Hoarseness - Cardiovascular Cariovascular: reports: Irregular heart rate (In the past, associated with A-fib until his ablation. None since). denies: Chest pain, Edema, Lightheadedness, Syncope, Exertional dyspnea, Decr. exercise tolerance - Respiratory Respiratory: reports: Cough (A couple of times this week but nothing severe. Nonproductive). denies: Sputum production, Wheezing, Snoring, Orthopnea, SOB at rest, SOB with exertion - Gastrointestinal Gastrointestinal: reports: Other (Suprapubic/pelvic/inguinal aching). denies: Abdominal pain, Abdominal distention, Constipation, Diarrhea, Change in bowel habits, Rectal bleeding - Genitourinary Genitourinary: reports: Flank pain. denies: Dysuria, Frequency, Urgency, Hematuria, Incontinence, Nocturia, Urethral discharge - Musculoskeletal Musculoskeletal: reports: Back pain, Muscle aches. denies: Limited range of motion, Muscle weakness, Joint swelling - Integumentary Integumentary: denies: Rash, Pruritis, Lesions, Dryness - Neurological Neurological: reports: General weakness, Headache, Memory problems, Pre-existing deficit. denies: Focal weakness, Dizziness, Abnormal gait, Seizures, Incoordination, Slurred speech - Psychiatric Psychiatric: denies: Depression, Anxiety, Suicidal - Endocrine Endocrine: denies: Polyuria, Polydypsia, Polyphagia - Hematologic/Lymphatic Hematologic/Lymphatic: denies: Anemia, Bruising Prior Level of Functionality: Independent with activities of daily living. Drives a car. Dresses himself, feeds himself. No use of durable medical equipment. Still works occasionally with his job Exam - Vital Signs Reviewed Vital Signs: Yes Vital Signs: Vital Signs x48h Temp Pulse Resp BP Pulse Ox 06/03/23 15:36 36.6 C 71 17 122/72 97 06/03/23 14:51 60 12 121/47 L 97 06/03/23 14:00 100.3 C H 87 22 102/63 100 06/03/23 13:30 81 20 105/76 98 06/03/23 13:07 85 20 101/60 97 06/03/23 12:20 101.4 C H 85 20 128/76 100 06/03/23 12:10 84 19 130/77 98 06/03/23 11:15 102.5 C H 89 22 139/88 H 99 06/03/23 11:14 85 18 139/88 H 99 06/03/23 10:40 38.0 C H 96 20 141/86 H 100 - Physical Exam General Appearance: positive: No acute distress, Alert, Moderate distress (Headache will not go away and its really bothering him), Other ( at the bedside. Well-nourished, well-developed, lucid historian) Eyes Bilateral: positive: PERRL, EOMI ENT: positive: Pharynx nml Neck: positive: No JVD. negative: Stiff neck Respiratory: positive: No respiratory distress. negative: Wheezes, Rales, Rhonchi Cardiovascular: positive: Regular rate & rhythm, No gallop. negative: Systolic murmur Peripheral Pulses: positive: 1+ Abdomen: positive: No organomegaly, Nml bowel sounds, No distention, Other (Mildly aching over the suprapubic and bilateral lower quadrants over his groin.). negative: Guarding, Rebound Skin: positive: No rash, Warm, Dry. negative: Puncture wound, Embolic lesions Extremities: positive: Non-tender, Full ROM, Nml appearance Neurologic/Psychiatric: positive: Oriented x3, CN's nml (2-12), Motor nml, Sensation nml Conclusion/Plan - Problem List (1) Fever, unknown origin Conclusion/Plan: Patient presents with undulating fevers that have been present since May 27. Negative review of systems in trying to figure out the source other than headache and photophobia. He also has lower T-spine pain that seems to radiate forward causing a type of flank pain. I explained to the patient and his that I am not seeing any evidence of pneumonia, UTI, colitis. Could he have prostatitis with his previous history? But his urinalysis is negative and he does not have any rectal pain. He had rectal pain with his previous episodes. I would also anticipate that he would have a gram-negative bacteremia not a gram-positive bacteremia of staph epididymis. I feel that the positive blood cultures are a red dao. He may have meningitis.He has received vancomycin in the emergency room. He is also had a new set of blood cultures done. Plan: Inpatient status Daily CBC C-reactive protein now and daily Lumbar puncture requested from ER provider I am considering CT of the pelvis And or CT of the T-spine considering he has bilateral inguinal pain and lower abdominal pain. Pain may be too strong of a worried because he describes it as a uncomfortable ache but not terrible. I am not seeing any signs of psoas injury and that he can flex and extend at the hip and knee without reproducing any pain. Echo (2) Staphylococcus epidermidis bacteremia Conclusion/Plan: No obvious source of skin breakdown other than his heels being cracked. There i s no redness, drainage, heat of any skin area. Not even where he gets his fingers poked with dirty fishhooks. He did have an IV placed but the IV was placed after he already presented with fevers. He did receive empiric antibiotics in the emergency room. My initial suspicion is that this is lab contamination and not true staph bacteremia. Plan: Echocardiogram Another set of blood cultures tomorrow No antibiotics at this time (3) Abnormal liver enzymes Conclusion/Plan: He denies history of alcohol abuse. He has been on vacation and drank more than he usually does but he did not drink excessively. He did not drink to get drunk. The most he would drink is 1 or 2 drinks a day. Mild hepatitis can be seen with EBV, CMV, HSV. If he does have meningitis, viral meningitis specifically, his LFTs could be from that. He could have hepatitis A or new hepatitis B and C as well. He is not at risk for the latter 2. Plan: Hepatitis panel HSV EBV CMV - Lab Results Lab results reviewed: Yes Fish Bones: 06/03/23 11:30 06/03/23 11:30 - Diagnostic Imaging Results Diagnostic Imaging Results: positive: Final report reviewed Diagnostic Imaging Results Comments: Chest x-ray done June 02 and June 03 have no acute cardiopulmonary process - EKG Results EKG Interpreted Independently: No Core Measures - Anticipated LOS I expect patient to be DC'd or transferred within 96 hours.: Yes - DVT/VTE - Prophylaxis VTE/DVT Prophylaxis med ordered at admit?: Yes
[2023-06-03 16:51] LABS: INFECTIOUS MONONUCLEOSIS NEGATIVE (Negative)
[2023-06-03 17:37] LABS: CSF - GLUCOSE 63 mg/dL (45-70); TOTAL PROTEIN,CSF 44 mg/dL (15-45)
--- NOTE | 2023-06-03 17:37 | PHARMACY PROGRESS NOTE ---
- Best Possible Medication History Admit Date and Time: 06/03/23 1558 Processed by: Pharmacy Medication History completed: Yes Patient Interview: Completed Secondary Source(s): Spouse/Significant other (TALKED WITH PT AND IN ED. PT'S STATES HE OCCASIONALLY TAKES SOME VITAMINS HERE AND THERE BUT NOTHING REGULARLY.), Other family member As the person ultimately responsible for medication therapy, providers are able to order a medication from an existing home medication list in [facility] via the "Reconcile Routine" prior to Confirmation of that medication by support merchandiser. Such practice is discouraged except when the physician, in their clinical judgment, deems that a medical need exists for a medication without regard to previous use.
[2023-06-03 18:01] LABS: CLARITY,CSF CLEAR (CLEAR); COLOR,CSF COLORLESS (COLORLESS); CSF TUBE # CSF TUBE# 3; CSF XANTHOCHROMIA ABSENT (ABSENT); RED BLOOD CELL,CSF 41 /mm^3 (0-1); WHITE BLOOD CELL,CSF 0 /mm^3 (0-5)
[2023-06-03] MEDS: oxyCODONE 5 MG TABLET PO PRN ×2 (18:18→22:08)
[2023-06-03] MEDS: SODIUM CHLORIDE 0.9% 1,000 ML IV SCH (18:25)
[2023-06-03] MEDS: SODIUM CHLORIDE FLUSH 0.9% 10 ML SYRINGE IVP SCH ×2 (18:25→23:45)
--- NOTE | 2023-06-03 18:53 | CT Report ---
PROCEDURE: ABDOMEN/PELVIS W INDICATIONS: lower abdominal pain and fever CONTRAST: 100mL Omni 300 TECHNIQUE: After the administration of IV contrast, 5 mm thick sections acquired from the diaphragms to the symp hysis. 5 mm thick coronal and sagittal reformats were acquired. For radiation dose reduction, the f ollowing was used: automated exposure control, adjustment of mA and/or kV according to patient size. COMPARISON: None. FINDINGS: Image quality: Good. Mild ring artifact. Lung bases and heart: Unremarkable. Liver: A few hypodense foci in the liver. Most likely small cysts or hemangioma. Gallbladder and biliary tree: No radiopaque stones or wall thickening. No biliary dilation. Spleen: No splenomegaly. Pancreas: Enhances uniformly. No peripancreatic fluid collection. Adrenals: No adrenal nodule. Kidneys and ureters: No hydronephrosis. No renal cystic lesion which requires follow up. No solid mas s. Abnormal stranding about both kidneys. No hydroureter. Renal enhancement appears symmetric. No str iated nephrogram. Bowel and peritoneum: No bowel distension. No pathologic free fluid. Normal appendix. Lymph nodes: Small mesenteric and retroperitoneal lymph nodes. Vessels: No infrarenal aortic aneurysm. PELVIS Reproductive organs: Unremarkable. Bladder: No stone. Pelvic lymph nodes: No pelvic adenopathy by size criteria. Bones: No aggressive osseous abnormality. Other: No significant ventral or inguinal hernia. IMPRESSION: Abnormal stranding about both kidneys. This could be seen in the setting of pyelonephritis. However, no striated nephrogram or hydronephrosis. Reviewed by: Aj Wallace MD on 06/03/2023 6:52 PM PDT Approved by: Aj Wallace MD on 06/03/2023 6:52 PM PDT Station ID: [id number]
[2023-06-03] MEDS ORDERED: iohexoL-300 100 ML VIAL IVP ONE (20:52)
[2023-06-03] MEDS: levoFLOXacin 500 MG/100 ML 500 MG/100 ML BAG IV SCH (21:03)
[2023-06-03] MEDS: ACETAMINOPHEN 325 MG TABLET PO PRN (21:07)
[2023-06-04] MEDS: ACETAMINOPHEN 325 MG TABLET PO PRN ×5 (01:08→18:41)
[2023-06-04] MEDS: oxyCODONE 5 MG TABLET PO PRN ×5 (02:07→20:47)
[2023-06-04] MEDS: SODIUM CHLORIDE 0.9% 1,000 ML IV SCH ×2 (04:38→15:47)
[2023-06-04 05:14] LABS: HBsAG SCREEN Negative (Negative); HCV AB Non Reactive (Non Reactive); HEPATITIS B CORE IGM AB Negative (Negative)
[2023-06-04 05:32] LABS: BASOPHILS % (AUTO) 0.3 %; HCT - HEMATOCRIT 39.3 % (42.0-52.0); HGB - HEMOGLOBIN 13.3 g/dL (14.0-18.0); LYMPHOCYTES # (AUTO) 1.4 10^3/uL (1.5-3.5); LYMPHOCYTES % (AUTO) 21.3 %; MEAN CORPUSCULAR HEMOGLOBIN 30.9 pg (27.0-31.0); MEAN CORPUSCULAR HGB CONC 33.8 g/dL (32.0-36.0); MEAN CORPUSCULAR VOLUME 91.4 fL (80.0-94.0); MEAN PLATELET VOLUME 9.4 fL (7.4-11.4); MONOCYTES # (AUTO) 0.9 10^3/uL (0.0-1.0); MONOCYTES % (AUTO) 12.7 %; NEUTROPHILS # (AUTO) 4.4 10^3/uL (1.5-6.6); NEUTROPHILS % (AUTO) 65.4 %; PLT - PLATELET COUNT 188 10^3/uL (130-450); RED CELL DISTRIBUTION WIDTH 13.4 % (12.0-15.0); WHITE BLOOD COUNT 6.7 x10^3/uL (4.8-10.8)
[2023-06-04 05:50] LABS: ALBUMIN 3.5 g/dL (3.2-5.5); ALBUMIN/GLOBULIN RATIO 1.5 (1.0-2.2); BILIRUBIN,TOTAL 0.4 mg/dL (0.2-1.0); CALCIUM 8.2 mg/dL (8.5-10.3); CREATININE 1.2 mg/dL (0.6-1.3); CRP - C-REACTIVE PROTEIN 13.6 mg/dL (<0.5); POTASSIUM 3.6 mmol/L (3.5-4.5); TOTAL PROTEIN 5.9 g/dL (6.4-8.9)
[2023-06-04 06:11] LABS: HSV 1 IGG TYPE SPEC <0.91 index (0.00-0.90); HSV 2 IGG TYPE SPEC <0.91 index (0.00-0.90)
[2023-06-04] MEDS: ENOXAPARIN 40 MG/0.4 ML SYRINGE SUBQ SCH (09:21)
[2023-06-04] MEDS: LIDOCAINE PATCH 5% TOP PRN (09:22)
[2023-06-04] MEDS: SODIUM CHLORIDE FLUSH 0.9% 10 ML SYRINGE IVP SCH ×2 (09:24→17:06)
--- NOTE | 2023-06-04 10:19 | PROVIDER PROGRESS NOTE ---
Progress Note June 04, 2023 10:12 AM Between yesterday and today he does not feel much better. His temperature was 38 degrees last night at 11:45 PM. Since then he has been afebrile. Blood pressure stable. He is main complaint is neck pain. And headache. The headache is gotten slightly better, but photophobia is still moderate. He thinks that he twisted his neck in trying to get comfortable in bed at home. Tylenol is not helping. Continues to have bilateral flank ache. Continues to have bilateral groin pain. No urgency, frequency, dysuria. He denies chest pain, cough, shortness of breath. Denies sore throat. Active Medications Acetaminophen (Acetaminophen 325 Mg Tablet) 650 mg PO Q4HR PRN PRN Reason: Pain 1 to 4, or Fever Last Admin: 06/04/23 09:22 Dose: 650 mg Enoxaparin Sodium (Enoxaparin 40 Mg/0.4 Ml Syringe) 40 mg SUBQ DAILY [facility] Last Admin: 06/04/23 09:21 Dose: 40 mg Sodium Chloride (Normal Saline 0.9%) 1,000 mls @ 100 mls/hr IV .Q10H [facility] Last Admin: 06/04/23 04:38 Dose: 100 mls/hr Levofloxacin (Levaquin 500 Mg/100 Ml) 500 mg in 100 mls @ 100 mls/hr IV Q24H [facility] Last Infusion: 06/03/23 22:18 Dose: Infused Lidocaine (Lidocaine Patch 5%) 1 patch TOP DAILY PRN PRN Reason: Moderate Pain (Level 4-6) Last Admin: 06/04/23 09:22 Dose: 1 patch Ondansetron HCl (Ondansetron Odt 4 Mg Tablet) 4 mg TL Q6HR PRN PRN Reason: Nausea / Vomiting Ondansetron HCl (Ondansetron 4 Mg/2 Ml Vial) 4 mg IVP Q6HR PRN PRN Reason: Nausea / Vomiting Oxycodone HCl (Oxycodone 5 Mg Tablet) 5 mg PO Q4HR PRN PRN Reason: Pain 5 to 7 Last Admin: 06/04/23 06:07 Dose: 5 mg Sodium Chloride (Sodium Chloride Flush 0.9% 10 Ml Syringe) 10 ml IVP PRN PRN PRN Reason: NEEDED PER PROVIDER ORDERS Sodium Chloride (Sodium Chloride Flush 0.9% 10 Ml Syringe) 10 ml IVP 0100,0900,1700 LATHA Last Admin: 06/04/23 09:24 Dose: Not Given No Known Home Medications 06/02/23 Exam: Temperature is 37.4. Heart rate is 80. Blood pressure 135/82. Respirations 16. 97% on room air. Well-nourished well-developed white male who looks stated age. Looks very fatigued. Curtains are drawn, lights are off. No nuchal rigidity but it hurts to turn his head right or left. Straight down the back of his spine. Lungs are clear to auscultation and percussion without increased respiratory effort Regular rate and rhythm no murmur Abdomen is soft, nontender, nondistended. No right upper quadrant pain. Extremities are without edema Neurologically he is alert and oriented to person, place, situation, time. No focal deficits. No tremors. Able to sit up on his own from supine to sit to stand. Lab: Sodium continues to be low at 131. Rest of his BMP is normal. Fasting glucose 111. Liver function studies have improved. Starting with the June 02 ER visit -AST 89> 43> 42 today -ALT 119>94>77 today -Alk Phos 141>133>105 with bili being normal. Acute hepatitis panel negative for A, B, C HSV antibodies negative Infectious mono assay negative CMV pending Lumbar puncture analysis has colorless fluid that is clear, no xanthochromia, no white cells, 41 red cells. Glucose is 63, and Gram stain is without white cells or organisms. Culture in progress. Blood cultures drawn yesterday and results pending. CT of the abdomen and pelvis small cyst hemangiomas in the liver. Gallbladder and biliary tree is normal. Kidneys without hydronephrosis. No cystic lesions. No solid masses. But he has abnormal stranding of both kidneys. No striated nephrogram. This is interpreted as a sign of pyelonephritis. Conclusion/Plan - Problem List (1) Fever, with origin being possible pyelonephritis on CT Conclusion/Plan: Patient presents with undulating fevers that have been present since May 27. Negative review of systems in trying to figure out the source other than headache and photophobia. He also has lower T-spine pain that seems to radiate forward causing a type of flank pain. I explained to the patient and his that I am not seeing any evidence of pneumonia, UTI, colitis. Could he have prostatitis with his previous history? But his urinalysis is negative and he does not have any rectal pain. He had rectal pain with his previous episodes. I would also anticipate that he would have a gram-negative bacteremia not a gram-positive bacteremia of staph epididymis. I feel that the positive blood cultures are a red dao. I thought about meningitis in the emergency room yesterday and had the ER provider do an LP. The LP was noncontributory and essentially normal. Cultures are pending. Because of the flank pain I ordered a CT and the CT shows the pyelonephritis. Urinalysis does have few bacteria with waxy casts and granular casts in the urine. As such I started him on Ciprofloxin 500 mg IV push twice daily. Today's day #2. Fever was shortly after his first dose but none since. WBC continues to be normal. Plan: Daily CBC Daily C-reactive protein ordered and pending. Continue Cipro (2) Staphylococcus epidermidis bacteremia vs contamination of specimen Conclusion/Plan: No obvious source of skin breakdown other than his heels being cracked. There is no redness, drainage, heat of any skin area. Not even where he gets his fingers poked with dirty fishhooks. He did have an IV placed but the IV was placed after he already presented with fevers. He did receive empiric antibiotics in the emergency room. My initial suspicion is that this is lab contamination and not true staph bacteremia. I am not treating Staph epidermidis with antibiotics. I am getting an echo today to follow-up on this. Another set of blood cultures was done June 03 and those results are pending. (3) Abnormal liver enzymes Conclusion/Plan: He denies history of alcohol abuse. He has been on vacation and drank more than he usually does but he did not drink excessively. He did not drink to get drunk. The most he would drink is 1 or 2 drinks a day. Because of the fever, headache, and diffuse myalgias my suspicion was that of a possible viral illness giving him viral meningitis. Lumbar puncture is normal. His HSV and EBV titers are negative. Hepatitis panel is negative. Liver enzymes are now improved or normalized depending on which one you are reading. CT of abdomen does not show obstruction. He does have hepatic cyst. Plan: At this time he is abnormalities are resolving. Fairly decent work-up done up-to-date. No further work-up unless they bump back up again. (4) neck pain Patient feels this more musculoskeletal than have anything to do with infection. As such I am going to order a lidocaine patch to place directly on the area that hurts to see if that will help
[2023-06-04] MEDS: CYCLOBENZAPRINE 10 MG TABLET PO PRN (12:40)
--- NOTE | 2023-06-04 13:11 | XRAY Report ---
PROCEDURE: Cervical Spine Comp w/Flex/Ext INDICATIONS: severe neck pain, no trauma TECHNIQUE: 7 views of the cervical spine were acquired. COMPARISON: None. FINDINGS: Bones: No fractures or dislocations to the C7 level. No suspicious bony lesions. There is normal r jason of motion between flexion and extension, with preserved normal bony alignment. Moderate disc hei ght loss at C5-6. Mild disc height loss at C4-5, C3-4. Mild facet arthrosis, most prominent at C5-6. Soft tissues: Prevertebral soft tissues are normal in thickness. IMPRESSION: Mild to moderate, multilevel degenerative disc disease and minimal, isolated facet arthr osis. Reviewed by: Saud Spaulding on 06/04/2023 1:09 PM PDT Approved by: Saud Spaulding on 06/04/2023 1:09 PM PDT Station ID: [id number]
--- NOTE | 2023-06-04 18:48 | CT Report ---
PROCEDURE: SOFT TISSUE NECK W INDICATIONS: fever, neck and dental pain CONTRAST: 100mL Omni 300 TECHNIQUE: After the administration of intravenous contrast, 3.0 mm axial sections acquired from the sella to th e aortic arch. Additional oblique axial 3.0 mm sections acquired through the pharynx. 3 mm thick co yadiel reformats were generated. For radiation dose reduction, the following was used: automated exp osure control, adjustment of mA and/or kV according to patient size. COMPARISON: Good FINDINGS: Image quality: Excellent Brain: Partially visualized, unremarkable. Orbits: No masses or abscess. Mouth and pharynx: Prominent tonsillar tissues, no focal fluid collection. Left tonsillar calcificati ons may be from prior inflammation. Airway: Mildly narrowed at the nasopharynx. Neck spaces: No masses or abscess. No lymphadenopathy. Glands: Unremarkable. No actionable thyroid nodules. Vessels: Patent. No occlusion. Upper chest: Unremarkable. No apical pneumothorax. Sinuses and mastoids: No significant opacification. Bones: No acute or suspicious osseous abnormality. IMPRESSION: Prominent bilateral tonsillar tissues. Consider correlation with direct visualization. No rim-enhanci ng fluid collection is identified. Left tonsillar calcifications may be due to prior inflammation. Reviewed by: Ronny Roque MD on 06/04/2023 6:47 PM PDT Approved by: Ronny Roque MD on 06/04/2023 6:47 PM PDT Station ID: [id number]
[2023-06-04] MEDS: levoFLOXacin 500 MG/100 ML 500 MG/100 ML BAG IV SCH (20:41)
[2023-06-04] MEDS: IBUPROFEN 400 MG TABLET PO PRN (22:09)
[2023-06-05] MEDS: SODIUM CHLORIDE FLUSH 0.9% 10 ML SYRINGE IVP SCH ×3 (00:01→20:49)
[2023-06-05] MEDS: oxyCODONE 5 MG TABLET PO PRN ×5 (00:52→20:46)
[2023-06-05] MEDS: ACETAMINOPHEN 325 MG TABLET PO PRN (01:08)
[2023-06-05] MEDS: SODIUM CHLORIDE 0.9% 1,000 ML IV SCH ×2 (02:44→12:54)
[2023-06-05 05:30] LABS: BASOPHILS % (AUTO) 0.3 %; EOSINOPHILS % (AUTO) 0.2 %; HCT - HEMATOCRIT 39.6 % (42.0-52.0); HGB - HEMOGLOBIN 12.8 g/dL (14.0-18.0); LYMPHOCYTES # (AUTO) 2.2 10^3/uL (1.5-3.5); LYMPHOCYTES % (AUTO) 34.1 %; MEAN CORPUSCULAR HEMOGLOBIN 30.1 pg (27.0-31.0); MEAN CORPUSCULAR HGB CONC 32.3 g/dL (32.0-36.0); MEAN CORPUSCULAR VOLUME 93.2 fL (80.0-94.0); MONOCYTES # (AUTO) 0.8 10^3/uL (0.0-1.0); MONOCYTES % (AUTO) 13.2 %; NEUTROPHILS # (AUTO) 3.3 10^3/uL (1.5-6.6); NEUTROPHILS % (AUTO) 51.9 %; PLT - PLATELET COUNT 211 10^3/uL (130-450); RED BLOOD COUNT 4.25 10^6/uL (4.70-6.10); RED CELL DISTRIBUTION WIDTH 13.2 % (12.0-15.0); WHITE BLOOD COUNT 6.3 x10^3/uL (4.8-10.8)
[2023-06-05 05:42] LABS: ALBUMIN 3.4 g/dL (3.2-5.5); ALBUMIN/GLOBULIN RATIO 1.3 (1.0-2.2); BILIRUBIN,TOTAL 0.5 mg/dL (0.2-1.0); CALCIUM 8.5 mg/dL (8.5-10.3); CREATININE 1.1 mg/dL (0.6-1.3); CRP - C-REACTIVE PROTEIN 9.6 mg/dL (<0.5); POTASSIUM 3.9 mmol/L (3.5-4.5)
[2023-06-05] MEDS: IBUPROFEN 400 MG TABLET PO PRN ×3 (08:02→20:46)
[2023-06-05] MEDS: LIDOCAINE PATCH 5% TOP PRN (08:02)
[2023-06-05] MEDS: ENOXAPARIN 40 MG/0.4 ML SYRINGE SUBQ SCH (08:02)
--- NOTE | 2023-06-05 13:38 | PROVIDER PROGRESS NOTE ---
Assessment/Plan - Problem List (1) Fever, unknown origin Assessment/Plan: Patient afebrile since 8 PM last night WBC normal CRP trending down No focus of infection identified thus far CSF unremarkable Repeat blood culture no growth to date Staph epidermidis blood culture positive was likely skin contaminant Patient has been on Levaquin since admission CT imaging suggestive of possible pyelonephritis though urinalysis is not suggestive of infection Discussed with patient possible passed kidney stone We will continue Levaquin empirically for 10 days We will transition from IV to p.o. today (2) Staphylococcus epidermidis bacteremia Assessment/Plan: As above, repeat blood culture no growth to date Continue Levaquin (3) Abnormal liver enzymes Assessment/Plan: Trending down Patient is asymptomatic CT abdomen is relatively noncontributory Likely secondary to infection Mildly elevated, discussed with patient value of outpatient monitoring Monitor (4) Head ache Qualifiers: Headache type: tension-type Headache chronicity pattern: episodic headache Intractability: not intractable Qualified Code(s): G44.219 - Episodic tension-type headache, not intractable Assessment/Plan: Patient with headache and neck pain Headache pain is located in the occipital region Pain likely secondary to neck tension CSF from LP unremarkable No meningeal signs or symptoms Continue symptomatic treatment (5) Neck pain Assessment/Plan: As above, patient with occipital region head and neck pain likely secondary to positional stress from patient maintaining head flexion for extended periods of time when he had fevers, as per patient report Patient started on muscle relaxers If pain continues to be refractory and fevers resolve, could consider oral steroids however until infection is ruled out more definitively, will need to be cautious with this - Current Meds Current Meds: Current Medications Generic Name Dose Route Start Last Admin Trade Name Freq PRN Reason Stop Dose Admin Acetaminophen 650 mg 06/03/23 15:40 06/05/23 01:08 Acetaminophen 325 Mg Tablet PO 650 mg Q4HR PRN Administration Pain 1 to 4, or Fever Cyclobenzaprine HCl 10 mg 06/04/23 11:44 06/04/23 12:40 Cyclobenzaprine 10 Mg Tablet PO 10 mg TID PRN Administration Spasms Enoxaparin Sodium 40 mg 06/04/23 09:00 06/05/23 08:02 Enoxaparin 40 Mg/0.4 Ml Syringe SUBQ 40 mg DAILY LATHA Administration Levofloxacin 500 mg in 100 mls @ 100 mls/hr 06/03/23 20:00 06/04/23 21:41 Levaquin 500 Mg/100 Ml IV 06/05/23 21:00 Infused Q24H LATHA Infusion Ibuprofen 400 mg 06/04/23 21:58 06/05/23 08:02 Ibuprofen 400 Mg Tablet PO 400 mg Q6HR PRN Administration Moderate Pain (Level 4-6) Lidocaine 1 patch 06/04/23 08:59 06/05/23 08:02 Lidocaine Patch 5% TOP 1 patch DAILY PRN Administration Moderate Pain (Level 4-6) Oxycodone HCl 10 mg 06/04/23 15:53 06/05/23 09:47 Oxycodone 5 Mg Tablet PO 10 mg Q4HR PRN Administration Pain 5 to 7 Sodium Chloride 10 ml 06/03/23 17:00 06/05/23 09:40 Sodium Chloride Flush 0.9% 10 Ml Syringe IVP Not Given 0100,0900,1700 LATHA - Lab Result Fish Bone Diagrams: 06/05/23 05:13 06/05/23 05:13 - EKG Results EKG Interpreted Independently: Yes - Diagnostic Imaging Results Diagnostic Imaging Results: Final report reviewed - Additional Planning Condition/Complexity: Improved My Orders: My Active Orders 06/06/23 20:00 levoFLOXacin [Levaquin] 750 mg PO 1999 Plan Discussed with:: Patient, Spouse Subjective - Subjective Patient Reports: Feeling Better, Headache Objective Vital Signs: Vital Signs - 24 hr 06/04/23 06/04/23 06/04/23 13:41 14:38 15:33 Temperature 102.2 C H 100.3 C H 39.2 C H Heart Rate [ 77 75 Brachial] Respiratory 18 20 Rate Blood Pressure 152/87 H [Left Brachial artery] O2 Saturation 97 98 06/04/23 06/04/23 06/04/23 17:45 18:41 20:46 Temperature 38.7 C H 38.2 C H 39.3 C H Heart Rate [ Brachial] Respiratory Rate Blood Pressure [Left Brachial artery] O2 Saturation 06/04/23 06/05/23 06/05/23 23:43 05:14 07:25 Temperature 37.7 C 37 C 37.6 C Heart Rate [ 77 61 Brachial] Respiratory 20 16 Rate Blood Pressure 127/65 137/88 H [Left Brachial artery] O2 Saturation 95 98 Oxygen O2 Source Room air I&O (Last 24 Hrs): Intake and Output Totals x24h 06/03/23 06/04/23 06/05/23 23:59 23:59 23:59 Intake Total 1120 3255.000 2055 Output Total 250 Balance 1120 3005.000 2055 General: Alert, Oriented x3 HEENT: Atraumatic Neck: Supple Lymphatic: no adenopathy Neuro: Alert, Non Focal, CN 2-12 Grossly Intact, Oriented Times 3 Cardiovascular: Regular rate, Normal S1, Normal S2 Respiratory: Chest non-tender, Breath sounds nml Abdomen: Normal bowel sounds, No tenderness Skin: No rashes - Results Results: Laboratory Results WBC 6.3 x10^3/uL (4.8-10.8) 06/05/23 05:13 RBC 4.25 10^6/uL (4.70-6.10) L 06/05/23 05:13 Hgb 12.8 g/dL (14.0-18.0) L 06/05/23 05:13 Hct 39.6 % (42.0-52.0) L 06/05/23 05:13 MCV 93.2 fL (80.0-94.0) 06/05/23 05:13 MCH 30.1 pg (27.0-31.0) 06/05/23 05:13 MCHC 32.3 g/dL (32.0-36.0) 06/05/23 05:13 RDW 13.2 % (12.0-15.0) 06/05/23 05:13 Plt Count 211 10^3/uL (130-450) 06/05/23 05:13 MPV 9.0 fL (7.4-11.4) 06/05/23 05:13 Neut # (Auto) 3.3 10^3/uL (1.5-6.6) 06/05/23 05:13 Lymph # (Auto) 2.2 10^3/uL (1.5-3.5) 06/05/23 05:13 [place] # (Auto) 0.8 10^3/uL (0.0-1.0) 06/05/23 05:13 Eos # (Auto) 0.0 10^3/uL (0.0-0.7) 06/05/23 05:13 Baso # (Auto) 0.0 10^3/uL (0.0-0.1) 06/05/23 05:13 Absolute Nucleated RBC 0.00 x10^3/uL 06/05/23 05:13 Band Neuts % (Manual) Not Reportable 06/03/23 11:30 Abnorm Lymph % (Manual) Not Reportable 06/03/23 11:30 Nucleated RBC % 0.0 /100WBC 06/05/23 05:13 Neutrophils # (Manual) Not Reportable 06/03/23 11:30 Lymphocytes # (Manual) Not Reportable 06/03/23 11:30 Monocytes # (Manual) Not Reportable 06/03/23 11:30 Eosinophils # (Manual) Not Reportable 06/03/23 11:30 Basophils # (Manual) Not Reportable 06/03/23 11:30 Differential Comment MANUAL=AUTO DIFF 06/03/23 11:30 Manual Slide Review Indicated 06/03/23 11:30 WBC Morphology NORMAL APPEARANCE (NORMAL) 06/03/23 11:30 Platelet Estimate NORMAL (130-450,000) (NORMAL) 06/03/23 11:30 Platelet Morphology NORMAL APPEARANCE (NORMAL) 06/03/23 11:30 RBC Morph Micro Appear NORMAL APPEARANCE (NORMAL) 06/03/23 11:30 Sodium 134 mmol/L (135-145) L 06/05/23 05:13 Potassium 3.9 mmol/L (3.5-4.5) 06/05/23 05:13 Chloride 103 mmol/L (101-111) 06/05/23 05:13 Carbon Dioxide 25 mmol/L (21-32) 06/05/23 05:13 Anion Gap 6.0 (6-13) 06/05/23 05:13 BUN 11 mg/dL (6-20) 06/05/23 05:13 Creatinine 1.1 mg/dL (0.6-1.3) 06/05/23 05:13 Estimated GFR (MDRD) 72 (>89) L 06/05/23 05:13 Glucose 92 mg/dL (74-104) 06/05/23 05:13 Calcium 8.5 mg/dL (8.5-10.3) 06/05/23 05:13 Total Bilirubin 0.5 mg/dL (0.2-1.0) 06/05/23 05:13 AST 49 IU/L (10-42) H 06/05/23 05:13 ALT 91 IU/L (10-60) H 06/05/23 05:13 Alkaline Phosphatase 97 IU/L (42-121) 06/05/23 05:13 C-Reactive Protein 9.6 mg/dL (<0.5) 06/05/23 05:13 Total Protein 6.0 g/dL (6.4-8.9) L 06/05/23 05:13 Albumin 3.4 g/dL (3.2-5.5) 06/05/23 05:13 Globulin 2.6 g/dL (2.1-4.2) 06/05/23 05:13 Albumin/Globulin Ratio 1.3 (1.0-2.2) 06/05/23 05:13 Lipase 10 U/L (11-82) L 06/03/23 11:30 Urine Color DARK YELLOW 06/03/23 11:53 Urine Clarity CLEAR (CLEAR) 06/03/23 11:53 Urine pH 6.0 PH (5.0-7.5) 06/03/23 11:53 Ur Specific [place] 1.020 (1.002-1.030) 06/03/23 11:53 Urine Protein 100 mg/dL (NEGATIVE) H 06/03/23 11:53 Urine Glucose (UA) NEGATIVE mg/dL (NEGATIVE) 06/03/23 11:53 Urine Ketones NEGATIVE mg/dL (NEGATIVE) 06/03/23 11:53 Urine Occult Blood TRACE-INTA (NEGATIVE) 06/03/23 11:53 Urine Nitrite NEGATIVE (NEGATIVE) 06/03/23 11:53 Urine Bilirubin NEGATIVE (NEGATIVE) 06/03/23 11:53 Urine Urobilinogen 0.2 (NORMAL) E.U./dL (NORMAL) 06/03/23 11:53 Ur Leukocyte Esterase NEGATIVE (NEGATIVE) 06/03/23 11:53 Urine RBC None Seen /HPF (0-5) 06/03/23 11:53 Urine WBC 0-3 /HPF (0-3) 06/03/23 11:53 Ur Squamous Epith Cells NONE SEEN (<= Few) 06/03/23 11:53 Urine Bacteria Few /HPF (None Seen) 06/03/23 11:53 Urine Casts 0-2 Waxy Casts /LPF0-2 Course Granular /LPF 06/03/23 11:53 Urine Casts 0-2 Waxy Casts /LPF0-2 Course Granular /LPF 06/03/23 11:53 Urine Mucus Few Strands 06/03/23 11:53 Ur Microscopic Review INDICATED 06/03/23 11:53 Urine Culture Comments NOT INDICATED 06/03/23 11:53 CSF Color COLORLESS (COLORLESS) 06/03/23 16:15 CSF Clarity CLEAR (CLEAR) 06/03/23 16:15 Xanthrochromic ABSENT (ABSENT) 06/03/23 16:15 CSF WBC 0 /mm^3 (0-5) 06/03/23 16:15 CSF RBC 41 /mm^3 (0-1) H 06/03/23 16:15 CSF Cell Count Tube # CSF TUBE# 3 06/03/23 16:15 CSF Glucose 63 mg/dL (45-70) 06/03/23 16:15 CSF Total Protein 44 mg/dL (15-45) 06/03/23 16:15 Nasal Adenovirus (PCR) NOT DETECTED 06/03/23 11:20 Nasal B. parapertussis DNA (PCR) NOT DETECTED 06/03/23 11:20 Nasal Coronavir 229E PCR NOT DETECTED 06/03/23 11:20 Nasal Coronavir HKU1 PCR NOT DETECTED 06/03/23 11:20 Nasal Coronavir NL63 PCR NOT DETECTED 06/03/23 11:20 Nasal Coronavir OC43 PCR NOT DETECTED 06/03/23 11:20 Nasal Enterovir/Rhinovir PCR NOT DETECTED 06/03/23 11:20 Nasal Influenza B PCR NOT DETECTED 06/03/23 11:20 Nasal Influenza A PCR NOT DETECTED 06/03/23 11:20 Nasal Parainfluen 1 PCR NOT DETECTED 06/03/23 11:20 Nasal Parainfluen 2 PCR NOT DETECTED 06/03/23 11:20 Nasal Parainfluen 3 PCR NOT DETECTED 06/03/23 11:20 Nasal Parainfluen 4 PCR NOT DETECTED 06/03/23 11:20 Nasal RSV (PCR) NOT DETECTED 06/03/23 11:20 Nasal B.pertussis DNA PCR NOT DETECTED 06/03/23 11:20 Nasal C.pneumoniae (PCR) NOT DETECTED 06/03/23 11:20 Stas Human Metapneumo PCR NOT DETECTED 06/03/23 11:20 Nasal M.pneumoniae (PCR) NOT DETECTED 06/03/23 11:20 Nasal SARS-CoV-2 (PCR) NOT DETECTED 06/03/23 11:20 Hepatitis A IgM Ab Negative (Negative) 06/03/23 16:57 Hep Bs Antigen Negative (Negative) 06/03/23 16:57 Hep B Core IgM Ab Negative (Negative) 06/03/23 16:57 Hepatitis C Antibody Non Reactive (Non Reactive) 06/03/23 16:57 Hepatitis C Interp Comment (.) 06/03/23 16:57 HSV I IgG Ab <0.91 index (0.00-0.90) 06/03/23 11:30 HSV II IgG <0.91 index (0.00-0.90) 06/03/23 11:30 Infectious [place] Assay NEGATIVE (Negative) 06/03/23 11:30 ABX Reporting Has patient been on IV antibiotics over the past 48 hours?: Yes
[2023-06-05] MEDS: levoFLOXacin 500 MG/100 ML 500 MG/100 ML BAG IV SCH (20:47)
[2023-06-05] MEDS: CYCLOBENZAPRINE 10 MG TABLET PO PRN (22:31)
[2023-06-06] MEDS: oxyCODONE 5 MG TABLET PO PRN ×3 (00:59→11:00)
[2023-06-06] MEDS: SODIUM CHLORIDE FLUSH 0.9% 10 ML SYRINGE IVP SCH ×2 (01:00→09:24)
[2023-06-06 05:17] LABS: EOSINOPHILS % (AUTO) 0.3 %; HGB - HEMOGLOBIN 13.2 g/dL (14.0-18.0); MEAN PLATELET VOLUME 8.8 fL (7.4-11.4); RED CELL DISTRIBUTION WIDTH 13.2 % (12.0-15.0)
[2023-06-06 05:23] LABS: BASOPHILS % (AUTO) 0.7 %; LYMPHOCYTES % (AUTO) 35.4 %; MEAN CORPUSCULAR HEMOGLOBIN 31.2 pg (27.0-31.0); MEAN CORPUSCULAR HGB CONC 33.8 g/dL (32.0-36.0); MEAN CORPUSCULAR VOLUME 92.2 fL (80.0-94.0); MONOCYTES % (AUTO) 11.2 %; NEUTROPHILS % (AUTO) 51.9 %; PLT - PLATELET COUNT 267 10^3/uL (130-450); RED BLOOD COUNT 4.23 10^6/uL (4.70-6.10); WHITE BLOOD COUNT 5.8 x10^3/uL (4.8-10.8)
[2023-06-06 05:24] LABS: SLIDE REVIEW? Indicated
[2023-06-06 05:34] LABS: ALBUMIN 3.7 g/dL (3.2-5.5); ALBUMIN/GLOBULIN RATIO 1.4 (1.0-2.2); BILIRUBIN,TOTAL 0.5 mg/dL (0.2-1.0); CALCIUM 9.1 mg/dL (8.5-10.3); CREATININE 0.9 mg/dL (0.6-1.3); CRP - C-REACTIVE PROTEIN 5.6 mg/dL (<0.5); POTASSIUM 3.9 mmol/L (3.5-4.5); TOTAL PROTEIN 6.3 g/dL (6.4-8.9)
[2023-06-06 05:59] LABS: ABNORMAL LYMPHS % (MANUAL) 0 %; BAND NEUTROPHILS % (MANUAL) 0 %; BASOPHILS # (MANUAL) 0.1 10^3/uL (0-0.1); BASOPHILS % (MANUAL) 1 %; DIFFERENTIAL COMMENT MANUAL DIFFERENTIAL; LYMPHOCYTES # (MANUAL) 3.1 10^3/uL (1.5-3.5); LYMPHOCYTES % (MANUAL) 54 %; MONOCYTES # (MANUAL) 0.5 10^3/uL (0.0-1.0); NEUTROPHILS # (MANUAL) 2.1 10^3/uL (1.5-6.6); PLATELET ESTIMATE, MANUAL NORMAL (130-450,000) (NORMAL); PLATELET MORPHOLOGY NORMAL APPEARANCE (NORMAL); RBC MORPHOLOGY (MULTIPLE) NORMAL APPEARANCE (NORMAL); WBC MORPHOLOGY (MULTIPLE) NORMAL APPEARANCE (NORMAL)
[2023-06-06] MEDS: CYCLOBENZAPRINE 10 MG TABLET PO PRN (07:12)
[2023-06-06 08:26] VITALS: O2SAT 97
[2023-06-06] MEDS: ENOXAPARIN 40 MG/0.4 ML SYRINGE SUBQ SCH (09:24)
--- NOTE | 2023-06-06 10:46 | Discharge Plan ---
Discharge Plan Problem Reviewed?: Yes Disposition: Home, Self Care Condition: Good Prescriptions: oxyCODONE [Roxicodone] 10 mg PO Q4HR PRN #20 tab PRN Reason: Pain 5 to 7 Cyclobenzaprine [Flexeril] 10 mg PO TID PRN #60 tab PRN Reason: Spasms levoFLOXacin [Levaquin] 750 mg PO 2000 7 Days #21 tab Diet: Regular Activity Restrictions: No Restrictions Shower Restrictions: No Driving Restrictions: No No Smoking: If you smoke, Please STOP! Call for help.
--- NOTE | 2023-06-06 10:55 | DISCHARGE SUMMARY ---
Discharge Summary Admit Date: 06/03/23 Discharge Date: 06/06/23 Discharging Provider: Dr Marcelino Jo Code Status: Attempt Resuscitation Condition at Discharge: Good Discharge Disposition: 01 Home, Self Care - DIAGNOSES Admission Diagnoses: Fever of unknown origin Staphylococcus epidermidis bacteremia Abnormal liver enzymes Discharge Diagnoses with Status of Each Condition: Fever of unknown originresolved Staphylococcus epidermidis bacteremia -Resolved Abnormal liver enzymesstable Headacheimproved Neck painimproved - HPI History of Present Illness: He is a 47-year-old male whose main medical problem in the past has been carbon monoxide poisoning causing cognitive deficits, and A-fib with RVR resulting in ablation over a year ago. But he regards himself is otherwise healthy and is physically able to do anything he wants to do. He does not use any durable medical equipment, still drives a car, fixes his boat, etc. He had been gone for 2 weeks. Had been traveling in the [facility] [place]. Had a great time. While still on the boat on May 27, he developed headache, fever, malaise. It was mild at first. But he continued on a daily basis until he came home on the . The headache is associated with photophobia. Poor appetite. And the fever has resulted in feeling diffuse myalgias, arthralgias, with severe weakness. It is hard for him to get out of bed. He has been drinking plenty of fluids. But minimal urine output. Since the he has also developed bilateral groin pain that is quite uncomfortable. He has had prostatitis a few times in the past. But that is usually associated with perineal and rectal pain. He has not had that. He has bilateral flank pain. He feels like the flank pain starts at his lower T-spine and then radiates around forward. But it is mild in comparison to what the headache is or what his groin feels like. He describes the groin pain as "weird". He denies testicular pain. He denies sore throat, ear pain, sinus pain. He has minimal cough. Denies urgency, frequency. No dysuria. No hematuria. No brown urine. He denies any bowel pain. No diarrhea. No rectal or perineal pain. Lower abdomen aches over the groin pain but no true abdominal pain. He came to the emergency room on June 02 when his fever was not going away and was as high as 102. He tried Tylenol. No one else is sick in the family. He is done multiple COVID swabs at home and they have all been negative. In the emergency room temperature was 37.6. Blood pressure was normal. Heart rate was 99. His exam was negative for heart lung and abdomen. No meningismus. No inguinal tenderness, no visible or palpable masses. His white cell count was normal. Blood cultures were obtained. He was sent home. He returns today with continued fever. He tells me that the fever is the worst headache he has ever had. It is associated with photophobia. No nausea or vomiting. No nuchal rigidity. When he was being reevaluated today, his blood cultures from the came back positive as Staph epidermidis. Blood cultures were drawn on June 02 at 7:41 AM. They came back positive on June 03 at 5:55 AM. Just under 24 hours. In discussing possible sources of infection that would be from skin, he has had no IVs, central lines. He does have chronic skin breakdown of his heels that is not new. 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 But there is no skin breakdown other than the heels. No redness, swelling, drainage of any skin area. Objectively repeat labs showed a normal white cell count. Tmax was 102.5 this morning. Chest x-ray is normal. But pulse and blood pressure are normal. Dr. Joseph, from the emergency room, asked if I could see this patient. Other than the chest x-ray he has not had any other radiologic imaging. Once I did a review of systems and spoke to the patient about his headache, photophobia, I rediscussed the case with Dr. Joseph and I asked that Dr. Joseph please do a lumbar puncture. Dr. Joseph will do so, but I am also going to be admitting this patient to inpatient status because of fever without source and positive blood cultures that need evaluation. - HOSPITAL COURSE Hospital Course: On admission, patient was started on empiric Levaquin. He had a lumbar puncture which resulted in essentially normal findings. He had daily monitoring of his CBC and CRP. And an echocardiogram was also ordered which did not show any evidence of infective endocarditis. Repeat blood culture was also obtained, which at the day of discharge is 3 days, shows no growth to date. Clinically the patient was well-appearing throughout the hospital stay. He did complain of neck pain and headache but again with no meningeal signs and no CSF findings suggestive of meningitis. His pain was also localized to the occipital region and was tender to palpation and more consistent with musculoskeletal etiology which would likely explain the tension headache. After confirming no fevers for 2 consecutive nights, with normal WBC, CRP trending down throughout the hospital stay, and the patient clinically otherwise appearing well with no other positive cultures he was deemed to be medically appropriate for discharge. Given that he was on Levaquin since admission for the possibility of infection entheses he did have stranding on bilateral kidneys on imaging at admission) this will be continued for another 7 days to complete a 10-day course of Levaquin. He is advised to follow-up with his PCP regarding mildly elevated LFTs and to follow-up sooner if other clinical changes such as recurrent fever, worsening pain, or other infectious or concerning symptoms. - ALLERGIES Allergies/Adverse Reactions: Allergies Allergy/AdvReac Type Severity Reaction Status Date / Time No Known Drug Allergies Allergy Verified 06/03/23 10:45 - MEDICATIONS Home Medications: Ambulatory Orders Medication Instructions Recorded Confirmed Acetaminophen [Tylenol] 650 mg PO Q4HR PRN tab 06/06/23 Cyclobenzaprine [Flexeril] 10 mg PO TID PRN #60 tab 06/06/23 Ibuprofen [Motrin] 400 mg PO Q6HR PRN tab 06/06/23 levoFLOXacin [Levaquin] 750 mg PO 2000 7 Days #21 tab 06/06/23 oxyCODONE [Roxicodone] 10 mg PO Q4HR PRN #20 tab 06/06/23 - PHYSICAL EXAM AT DISCHARGE General Appearance: positive: No acute distress Eyes Bilateral: positive: Normal inspection Neck: positive: Nml inspection. negative: Lymphadenopathy (R), Lymphadenopathy (L), Stiff neck, Kernig's sign, Brudzinski's sign Respiratory: positive: No respiratory distress, Breath sounds nml Cardiovascular: positive: Regular rate & rhythm, No murmur, No gallop Abdomen: positive: Non-tender, No organomegaly, Nml bowel sounds, No distention Back: positive: Nml inspection Skin: positive: Color nml, No rash Neurologic/Psychiatric: positive: Oriented x3, CN's nml (2-12), Motor nml - LABS Result Diagrams: 06/06/23 05:01 06/06/23 05:01 - FOLLOW UP Follow Up: PCP (To be establised) - TIME SPENT Time Spent in Discharge (Minutes): 38
[2023-06-06 11:02] VITALS: BP 137/84
[2023-06-06] MEDS ORDERED: levoFLOXacin 250 MG TABLET PO SCH (20:00)
[2023-06-07 19:07] LABS: CMV QUANTITATION DNA PCR Negative (Negative)
== END 2023-06-06 11:37 | disposition home or self-care (01) | DRG 864 ==
LOC: ED 10:13 → MS2 15:58
PROVIDERS: ADMIT Specialist; ATTEND Family Medicine Sports Medicine
PROC: 009U3ZX Drainage of Spinal Canal, Percutaneous Approach, Diagnostic (ICD-10-PCS; principal; 2023-06-03)
DX: R50.9 Fever, unspecified (principal); R78.81 Bacteremia; B95.7 Other staphylococcus as the cause of diseases classified elsewhere; M54.2 Cervicalgia; D18.09 Hemangioma of other sites; G44.219 Episodic tension-type headache, not intractable; S60.419A Abrasion of unspecified finger, initial encounter; X58.XXXA Exposure to other specified factors, initial encounter; R10.31 Right lower quadrant pain; R10.32 Left lower quadrant pain; R10.9 Unspecified abdominal pain; R23.8 Other skin changes; R41.89 Other symptoms and signs involving cognitive functions and awareness; R74.01 Elevation of levels of liver transaminase levels; R74.8 Abnormal levels of other serum enzymes; Z20.822 Contact with and (suspected) exposure to COVID-19; Z86.79 Personal history of other diseases of the circulatory system; Z87.891 Personal history of nicotine dependence
CPT/HCPCS: 36415; 62270; 70491; 71045; 72052; 74177; 80053; 80074; 81001; 81599; 82945; 83690; 84157; 85025; 86140; 86308; 86695; 86696; 87040; 87070; 87205; 87497; 87633; 89051; 93306; 96365; 96366; 96375; 99284; 99285; A9270; J1650; J3370; Q0162; Q9967; 81003; 87086; 87529

== ENCOUNTER 2023-06-16 07:09 | Outpatient (CLI) | payer MEDICAID ==
[2023-06-16 14:36] LABS: BASOPHILS % (AUTO) 0.6 %; EOSINOPHILS % (AUTO) 0.6 %; HGB - HEMOGLOBIN 13.7 g/dL (14.0-18.0); LYMPHOCYTES % (AUTO) 29.7 %; MEAN CORPUSCULAR HEMOGLOBIN 30.9 pg (27.0-31.0); MEAN CORPUSCULAR HGB CONC 32.6 g/dL (32.0-36.0); MEAN CORPUSCULAR VOLUME 94.8 fL (80.0-94.0); MEAN PLATELET VOLUME 9.7 fL (7.4-11.4); MONOCYTES # (AUTO) 0.6 10^3/uL (0.0-1.0); MONOCYTES % (AUTO) 9.3 %; NEUTROPHILS % (AUTO) 59.5 %; PLT - PLATELET COUNT 210 10^3/uL (130-450); RED BLOOD COUNT 4.43 10^6/uL (4.70-6.10); RED CELL DISTRIBUTION WIDTH 13.3 % (12.0-15.0); WHITE BLOOD COUNT 6.7 x10^3/uL (4.8-10.8)
[2023-06-16 14:37] LABS: BILIRUBIN,URINE NEGATIVE (NEGATIVE); GLUCOSE, URINE (UA) NEGATIVE (NEGATIVE); KETONES,URINE (UA) NEGATIVE (NEGATIVE); LEUKOCYTE ESTERASE, URINE NEGATIVE (NEGATIVE); NITRITE,URINE NEGATIVE (NEGATIVE); OCCULT BLOOD,URINE NEGATIVE (NEGATIVE); PROTEIN,URINE NEGATIVE (NEGATIVE); UROBILINOGEN,URINE 0.2 (NORMAL) E.U./dL (NORMAL)
[2023-06-16 14:51] LABS: BACTERIA,URINE None Seen /HPF (None Seen); CLARITY,URINE CLEAR (CLEAR); RBC,URINE None Seen /HPF (0-5); SQUAMOUS EPITHELIAL CELL,UR NONE SEEN (<= Few); WBC,URINE 0-3 /HPF (0-3)
[2023-06-16 14:52] LABS: ALBUMIN 4.5 g/dL (3.2-5.5); BILIRUBIN,TOTAL 0.4 mg/dL (0.2-1.0); CALCIUM 9.5 mg/dL (8.5-10.3); CREATININE 0.9 mg/dL (0.6-1.3); CRP - C-REACTIVE PROTEIN 0.5 mg/dL (<0.5); POTASSIUM 4.6 mmol/L (3.5-4.5); TOTAL PROTEIN 6.7 g/dL (6.4-8.9)
== END 2023-06-16 07:10 | disposition home or self-care (01) ==
LOC: LAB.S 07:09
PROVIDERS: ATTEND Internal Medicine
DX: N12 Tubulo-interstitial nephritis, not specified as acute or chronic (principal)
CPT/HCPCS: 36415; 80053; 81001; 85025; 86140; 87086

== ENCOUNTER 2023-07-02 07:05 | Outpatient (CLI) | payer MEDICAID ==
[2023-07-02 15:15] LABS: ALBUMIN 4.5 g/dL (3.2-5.5); ALKALINE PHOSPHATASE 66 IU/L (42-121); ALT ALANINE AMINOTRANSFERASE 44 IU/L (10-60); AST ASPARTATE AMINOTRANSFERASE 22 IU/L (10-42); BILIRUBIN,TOTAL 0.5 mg/dL (0.2-1.0); BUN - BLOOD UREA NITROGEN 11 mg/dL (6-20); CALCIUM 9.3 mg/dL (8.5-10.3); CARBON DIOXIDE - CO2 25 mmol/L (21-32); CHLORIDE 106 mmol/L (101-111); CHOLESTEROL 213 mg/dL; CREATININE 0.8 mg/dL (0.6-1.3); GFR - MDRD 104 (>89); GLUCOSE 108 mg/dL (74-104); HDL CHOLESTEROL 43 mg/dL; LDL CHOLESTEROL,CALCULATED 151 mg/dL; LDL/HDL RATIO 3.5 (<3.6); POTASSIUM 4.3 mmol/L (3.5-4.5); SODIUM 138 mmol/L (135-145); TOTAL PROTEIN 6.7 g/dL (6.4-8.9); TRIGLYCERIDES 96 mg/dL (48-352); VLDL CHOLESTEROL 19 mg/dL
[2023-07-02 15:43] LABS: ESTIMATED AVERAGE GLUCOSE 108 mg/dL (70-100); HEMOGLOBIN A1c% 5.4 % (4.27-6.07)
== END 2023-07-02 07:06 | disposition home or self-care (01) ==
LOC: LAB.S 07:05
PROVIDERS: ATTEND Internal Medicine
DX: N12 Tubulo-interstitial nephritis, not specified as acute or chronic (principal); Z79.899 Other long term (current) drug therapy; T58 Toxic effect of carbon monoxide; Z13.220 Encounter for screening for lipoid disorders
CPT/HCPCS: 36415; 80053; 80061; 83036; 83721; 84443

== ENCOUNTER 2023-10-30 09:14 | Day surgery (SDC) | payer MEDICAID ==
[~2023-10-30 09:14] MED LIST: PROPOFOL 500 MG/50 ML 500 MG/50 ML VIAL ONE
[2023-10-30] MEDS ORDERED: LACTATED RINGERS 1,000 ML IV ONE ×2 (09:17→11:13)
--- NOTE | 2023-10-30 09:30 | ANESTHESIA ---
Pre-Anesthesia VS, & Labs - Diagnosis screening - Procedure colonoscopy Height: 6 ft 4 in Weight (kg): 107.7 kg Body Mass Index: 28.9 BMI Classification: Overweight - NPO >8 hours Home Medications and Allergies Allergies/Adverse Reactions: Allergies Allergy/AdvReac Type Severity Reaction Status Date / Time No Known Drug Allergies Allergy Verified 06/03/23 10:45 Anes History & Medical History - Anesthetic History Anesthesia Complications: reports: No previous complications - Medical History Cardiovascular: reports: None, Atrial fibrillation Pulmonary: reports: None, Sleep apnea, CPAP use Gastrointestinal: reports: None Urinary: reports: None, Other Neuro: reports: Head injury, Headaches Musculoskeletal: reports: None Endocrine/Autoimmune: reports: None Skin: reports: None, Other Smoking Status: Former smoker History of Cancer?: No - Surgical History Cardiothoracic: reports: Cardiac catheterization (ablation) Exam General: Alert, Oriented x3, Cooperative Dental: WNL Mouth Opening: Greater than 4 Fingerbreadths Neck Mobility: Normal Mallampati classification: II Thyromental Distance: greater than 6 cm Respiratory: Lungs clear Cardiovascular: Regular rate Plan Anesthesia Type: Total IV Consent for Procedure(s) Verified and Reviewed: Yes Code Status: Attempt Resuscitation ASA classification: 2-Mild systemic disease Is this case an emergency?: No
[2023-10-30] MEDS ORDERED: SIMETHICONE 40 MG/0.6 ML 15 ML BOTTLE ONE (10:41)
[2023-10-30] MEDS ORDERED: SIMETHICONE 40 MG/0.6 ML 15 ML BOTTLE PO ONE (10:42)
[2023-10-30] MEDS ORDERED: PROPOFOL 200 MG/20 ML VIAL IVP ONE ×3 (10:47→11:04)
[2023-10-30] MEDS ORDERED: GLYCOPYRROLATE 1 MG/5 ML VIAL ONE (10:47)
[2023-10-30 11:46] VITALS: BP 102/69; O2SAT 96
--- NOTE | 2023-10-30 18:09 | ANESTHESIA POST OP EVALUATION ---
Anesthesia Post Eval - Post Anesthesia Eval Vitals: Last Vital Signs Temp 36.2 C L 10/30/23 11:36 Pulse 69 10/30/23 11:36 Resp 16 10/30/23 11:36 BP 102/69 10/30/23 11:36 Pulse Ox 96 10/30/23 11:36 O2 Flow Rate CV Function Including HR & BP: Stable Pain Control: Satisfactory Nausea & Vomiting: Negative Mental Status: Baseline Respiratory Status: Airway Patent Hydration Status: Satisfactory Anesthesia Complications: None
== END 2023-10-30 09:15 | disposition home or self-care (01) ==
LOC: SDS 09:14
PROVIDERS: ATTEND Surgery
PROC: 0DBL8ZZ Excision of Transverse Colon, Via Natural or Artificial Opening Endoscopic (ICD-10-PCS; 2023-10-30)
PROC: 0DBN8ZZ Excision of Sigmoid Colon, Via Natural or Artificial Opening Endoscopic (ICD-10-PCS; principal; 2023-10-30 10:30)
DX: Z12.11 Encounter for screening for malignant neoplasm of colon (principal); D12.3 Benign neoplasm of transverse colon; D12.5 Benign neoplasm of sigmoid colon; I48.91 Unspecified atrial fibrillation; G47.30 Sleep apnea, unspecified
CPT/HCPCS: 45380; 45385; A9270; J7120